=== PATIENT | male | born 1955 | race American Indian/Alaskan Native ===

== ENCOUNTER 2017-03-13 06:04 | Day surgery (SDC) | payer MEDICARE ==
[2017-03-13] MEDS ORDERED: ECOTRIN PO ONE (06:53)
[2017-03-13] MEDS ORDERED: NACL 0.9% 500 ML 500 ML IV SCH (07:00)
[2017-03-13 07:14] LABS: Basophils % (Auto) 0.4 % (0.0-1.8); Eosinophils % (Auto) 8.3 % (0.0-4.3); Hematocrit 37.2 % (35.5-45.6); Hemoglobin 12.2 gm/dl (11.8-15.2); Mean Corpuscular HGB Conc 33 % (32-34); Mean Corpuscular Hemoglobin 33 pg (28-32); Mean Corpuscular Volume 102 fl (84-94); Platelet Count 184 K/mm3 (140-440); Red Blood Count 3.66 M/mm3 (3.65-5.03); Red Cell Distribution Width 14.3 % (13.2-15.2); White Blood Count 5.2 K/mm3 (4.5-11.0)
[2017-03-13 07:24] LABS: INR 0.96 (0.87-1.13)
[2017-03-13 07:27] LABS: Anion Gap 16 mmol/L; BUN/Creatinine Ratio 16.36; Blood Urea Nitrogen 18 mg/dL (9-20); Calcium 8.4 mg/dL (8.4-10.2); Carbon Dioxide 22 mmol/L (22-30); Chloride 105.9 mmol/L (98-107); Glucose 123 mg/dL (75-100); Potassium 4.2 mmol/L (3.6-5.0); Sodium 140 mmol/L (137-145)
[2017-03-13] MEDS ORDERED: HEPARIN 10,000 UNITS/10 ML ONE (09:28)
[2017-03-13] MEDS ORDERED: CALAN ONE (09:28)
[2017-03-13] MEDS ORDERED: HEPARIN/NS 5000 UNIT/500ML(CATH LAB) 1,000 ML IR ONE (09:28)
[2017-03-13] MEDS ORDERED: NITROGLYCERIN SYRINGE 3 ML ONE (09:29)
[2017-03-13] MEDS ORDERED: VERSED ONE (09:29)
[2017-03-13] MEDS ORDERED: XYLOCAINE 2% INFILTRATI ONE (09:29)
[2017-03-13] MEDS: SUBLIMAZE ONE ×2 (09:39→10:01)
--- NOTE | 2017-03-13 11:36 | Cardiac Catherization Report ---
REFERRING PHYSICIAN: ____ Michelle INDICATION FOR PROCEDURE: The patient is a very pleasant 62-year-old -[place] gentleman who has a history of a severe, but well compensated cardiomyopathy, abnormal stress test, referred for cardiac catheterization to delineate etiology of this cardiomyopathy. Risks, benefits, alternatives discussed at length prior to obtaining informed consent. PROCEDURE IN DETAIL: The patient was brought to the labeling specialist in a postabsorptive state, prepped and draped in sterile fashion. Chidi's test in right hand was normal. A 2 mL of 2% lidocaine used to anesthetize the right wrist. A standard 6-Danish hydrophilic sheath used to cannulate the right radial artery via modified Seldinger technique. All exchanges performed to exchange a J-tip guidewire. JL3.5 catheter used to engage left main. No dampening or ventricularization. Cineangiography performed in all projections. JR4 catheter used to cross the aortic valve under fluoroscopic guidance. Left ventriculography performed in 30 GUTIÉRREZ and 30 HENRY projections via hand injections, catheter flushed. Manual pullback performed with continuous pressure monitoring. Catheter used to engage the right coronary. No dampening or ventricularization. Cineangiography performed in all projections in multiple projections. Next, catheter removed from the body of wire, sheath removed. Manual pressure used to achieve hemostasis. DATA: Aortic pressure is 130/60, LV pressure is 130, LVEDP of 15 mmHg. Left ventriculography reveals severe global left ventricular hypokinesis, estimated ejection fraction of 20 to 25%. No evidence of aortic stenosis, high normal LVEDP. CORONARY ANATOMY: This is a right dominant system. Right coronary is a moderate sized vessel, courses AV groove, distally bifurcates in the posterior and posterolateral branch. There is a 30 to 40% mid right coronary stenosis, ARTEMIO 3 flow throughout. Left main without significant disease, bifurcates in left anterior descending and left circumflex. Left circumflex is a moderate sized vessel. It is a smaller sized vessel. OM trunk with diffuse 70% disease proximal to distal. This is a small vessel and not amenable to PCI. LAD is a large vessel, courses anterior groove, wraps around the apex, no significant disease in large LAD or diagonal system. CONCLUSIONS: 1. Moderate nonobstructive coronary artery disease. Overall, including a small 70% diffuse disease in a small OM1 proximal to distal, would treat medically, nonamenable to PCI. 2. 30-40% mid right coronary. 3. LAD and left main without significant disease. 4. Severe global left ventricular hypokinesis, estimated ejection fraction of 20 to 25%. 5. High normal LVEDP. 6. No evidence of aortic stenosis. These findings are consistent with a well compensated nonischemic cardiomyopathy with mild ambient coronary artery disease. Continue beta blockade, GELY inhibition, I tried to minimize contrast exposure as much as possible. I will recheck creatinine in 2 days. The patient meets all criteria for defibrillator. We will set him up to see Electrophysiology. This is discussed with the patient and his daughter. He is clinically stable, will be discharged here once radial protocol is completed, stable cardiac status ____. Follow up with Dr. Martinez. JOB# [id number] GLADIS/NTS
--- NOTE | 2017-03-13 13:02 | Short Stay Summary ---
Short Stay Documentation Date of service: 03/13/17 - History H&P: obtained from office - Allergies and Medications Current Medications: Allergies peach Adverse Reaction (Verified 03/13/17 06:51) Swelling,ITCHING, RASH Home Medications Medication Instructions Recorded Confirmed Last Taken Type Aspirin EC [Ecotrin] 325 mg PO QDAY 03/13/17 03/13/17 03/12/17 History Carvedilol [Carvedilol] 3.125 mg PO BID 03/13/17 03/13/17 03/12/17 History Lisinopril [Lisinopril] 5 mg PO QDAY 03/13/17 03/13/17 03/12/17 History Active Medications Sodium Chloride (Nacl 0.9% 500 Ml) 500 mls @ 50 mls/hr IV DIRECT KIRSTY Stop: 03/13/17 16:59 Last Admin: 03/13/17 07:20 Dose: 50 mls/hr - Brief post op/procedure progress note Date of procedure: 03/13/17 Procedure: [facility] Anesthesia: local Estimated blood loss: none Pathology: none Condition: stable - Hospital course Hospital course: The patient is a 62-year-old male with a past medical history is significant for severe cardiomyopathy and abnormal stress test. He presented today for scheduled elective coronary angiography to delineate the etiology of his cardiac myopathy. He subsequently underwent left heart sterilization via right radial artery per Dr. Sybil Jin which revealed nonobstructive coronary artery disease, EF 20-25%. He remained clinically and hemodynamically stable throughout the procedure and recovery and is cleared for discharge home today following the completion of his post-cath order set. - Disposition Condition at discharge: Stable Disposition: DISCHARGED TO HOME OR SELFCARE - Discharge Diagnoses (1) Nonischemic cardiomyopathy Status: Chronic Short Stay Discharge Plan Activity: advance as tolerated Weight Bearing Status: Full Weight Bearing Diet: low fat, low cholesterol, low salt Wound: open to air, keep clean and dry Additional Instructions: Make follow up appointment with in 7 days Forms: CardCath PCI D/C Instructions, Post Sedation D/C Instructions
[2017-03-13 13:11] VITALS: BP 150/91
== END 2017-03-13 13:20 | disposition home or self-care (01) ==
LOC: OPU 06:04
PROVIDERS: ATTEND Internal Medicine
DX: I25.10 Atherosclerotic heart disease of native coronary artery without angina pectoris (principal); I11.0 Hypertensive heart disease with heart failure; I50.9 Heart failure, unspecified; F17.210 Nicotine dependence, cigarettes, uncomplicated; Z79.899 Other long term (current) drug therapy; Z72.89 Other problems related to lifestyle
CPT/HCPCS: 36415; 80048; 85025; 85610; 85730; 93005; 93010; 93458; C1894; J1644; J2250; J3010; J7040; Q9967

== ENCOUNTER 2017-07-15 22:29 | Emergency (ER) | payer MEDICARE ==
[2017-07-15 23:08] VITALS: BP 124/75
[2017-07-15] MEDS ORDERED: NACL 0.9% 1000 ML 1,000 ML IV ONE (23:08)
[2017-07-15 23:45] LABS: Basophils % (Auto) 0.5 % (0.0-1.8); Eosinophils % (Auto) 5.9 % (0.0-4.3); Hematocrit 26.9 % (35.5-45.6); Hemoglobin 8.8 gm/dl (11.8-15.2); Mean Corpuscular HGB Conc 33 % (32-34); Mean Corpuscular Hemoglobin 34 pg (28-32); Mean Corpuscular Volume 103 fl (84-94); Platelet Count 332 K/mm3 (140-440); Red Blood Count 2.61 M/mm3 (3.65-5.03); Red Cell Distribution Width 15.5 % (13.2-15.2); White Blood Count 4.9 K/mm3 (4.5-11.0)
[2017-07-15 23:53] LABS: INR 0.93 (0.87-1.13)
[2017-07-15 23:54] LABS: Partial Thromboplastin Time 30.8 Sec. (24.2-36.6)
[2017-07-16 00:04] LABS: Alanine Aminotransferase 10 units/L (7-56); Albumin 3.7 g/dL (3.9-5); Albumin/Globulin Ratio 1.2 %; Alkaline Phosphatase 74 units/L (35-129); Anion Gap 19 mmol/L; BUN/Creatinine Ratio 16.66; Blood Urea Nitrogen 20 mg/dL (9-20); Calcium 8.7 mg/dL (8.4-10.2); Carbon Dioxide 23 mmol/L (22-30); Chloride 100.8 mmol/L (98-107); Glucose 214 mg/dL (75-100); Lipase 44 units/L (13-60); Potassium 4.1 mmol/L (3.6-5.0); Sodium 139 mmol/L (137-145); Total Protein 6.7 g/dL (6.3-8.2)
[2017-07-16 00:43] LABS: Bilirubin,Urine NEG (Negative); Blood,Urine NEG (Negative); Ketones,Urine NEG (Negative); Leukocyte Esterase,Urine MOD (Negative); Mucus,Urine FEW /HPF; Nitrite,Urine POS (Negative); Urobilinogen,Urine < 2.0 mg/dL (<2.0)
--- NOTE | 2017-07-16 07:21 | XRay Report ---
ROUTINE CHEST, TWO VIEWS: HISTORY: Shortness of breath. The trachea, heart, mediastinal contour, lung pollard and bony thorax are unremarkable. IMPRESSION: Unremarkable chest x-ray.
--- NOTE | 2017-07-18 00:37 | ED Elopement Review ---
ED Pt Elopement review - Results review Lab results: Laboratory Tests 07/15/17 07/15/17 07/15/17 23:24 23:24 23:24 WBC 4.9 RBC 2.61 L Hgb 8.8 L Hct 26.9 L MCV 103 H MCH 34 H MCHC 33 RDW 15.5 H Plt Count 332 Lymph % (Auto) 35.6 H [place] % (Auto) 9.1 H Eos % (Auto) 5.9 H Baso % (Auto) 0.5 Lymph # 1.8 [place] # 0.4 Eos # 0.3 Baso # 0.0 Seg Neutrophils % 48.9 Seg Neutrophils # 2.4 PT 12.9 INR 0.93 APTT 30.8 Sodium 139 Potassium 4.1 Chloride 100.8 Carbon Dioxide 23 Anion Gap 19 BUN 20 Creatinine 1.2 Estimated GFR > 60 BUN/Creatinine Ratio 16.66 Glucose 214 H Calcium 8.7 Total Bilirubin 0.20 AST 12 ALT 10 Alkaline Phosphatase 74 Troponin T < 0.010 Total Protein 6.7 Albumin 3.7 L Albumin/Globulin Ratio 1.2 Lipase 44 Urine Color Urine Turbidity Urine pH Ur Specific [place] Urine Protein Urine Glucose (UA) Urine Ketones Urine Blood Urine Nitrite Urine Bilirubin Urine Urobilinogen Ur Leukocyte Esterase Urine WBC (Auto) Urine RBC (Auto) U Epithel Cells (Auto) Urine Mucus Blood Type Antibody Screen 07/15/17 07/15/17 07/16/17 23:24 23:54 02:44 WBC RBC Hgb Hct MCV MCH MCHC RDW Plt Count Lymph % (Auto) [place] % (Auto) Eos % (Auto) Baso % (Auto) Lymph # [place] # Eos # Baso # Seg Neutrophils % Seg Neutrophils # PT INR APTT Sodium Potassium Chloride Carbon Dioxide Anion Gap BUN Creatinine Estimated GFR BUN/Creatinine Ratio Glucose Calcium Total Bilirubin AST ALT Alkaline Phosphatase Troponin T < 0.010 Total Protein Albumin Albumin/Globulin Ratio Lipase Urine Color Yellow Urine Turbidity Clear Urine pH 6.0 Ur Specific [place] 1.013 Urine Protein 100 mg/dl Urine Glucose (UA) Neg Urine Ketones Neg Urine Blood Neg Urine Nitrite Pos Urine Bilirubin Neg Urine Urobilinogen < 2.0 Ur Leukocyte Esterase Mod Urine WBC (Auto) 14.0 H Urine RBC (Auto) 2.0 U Epithel Cells (Auto) 1.0 Urine Mucus Few Blood Type O POSITIVE Antibody Screen Negative - Call Back decision Pt Call Back Decision: Call pt to return to ED JALEN (patient is anemic with significant change in hemoglobin/hematocrit since March 2017. Patient's presentation may represent symptomatic anemia)
== END 2017-07-16 03:49 | disposition left against medical advice (07) ==
LOC: ED 22:29
DX: R07.9 Chest pain, unspecified (principal); R42 Dizziness and giddiness; Z53.21 Procedure and treatment not carried out due to patient leaving prior to being seen by health care provider
CPT/HCPCS: 36415; 71020; 80053; 81001; 83690; 84484; 85025; 85610; 85730; 86850; 86900; 86901; 93005; 93010

== ENCOUNTER 2020-01-05 10:15 | Outpatient (CLI) | payer MEDICARE ==
[2020-01-05 10:34] LABS: Hemoglobin 9.7 gm/dl (11.8-15.2); Mean Corpuscular HGB Conc 31 % (32-34); Mean Corpuscular Volume 102 fl (84-94); Platelet Count 237 K/mm3 (140-440); Red Blood Count 3.03 M/mm3 (3.65-5.03)
[2020-01-05 11:01] LABS: Erythrocyte Sedimentation Rate 40 mm/Hr (0-20)
[2020-01-05 11:08] LABS: Albumin 3.6 g/dL (3.9-5)
== END 2020-01-05 10:16 | disposition home or self-care (01) ==
LOC: LAB 10:15
PROVIDERS: ATTEND Specialist
DX: G45.9 Transient cerebral ischemic attack, unspecified (principal)
CPT/HCPCS: 36415; 80053; 85027; 85652